=== PATIENT | female | born 1970 | race Caucasian/White ===

== ENCOUNTER → 2018-04-26 | Outpatient (CLI) | payer BC ==
--- NOTE | 2018-04-26 14:53 | RAD ---
DATE: 04/26/2018 EXAM: MAMMO LADI GAIL HARRIS, BREAST BILATERAL HISTORY: Right nipple discharge COMPARISON: 01/01/2015 This study was interpreted with the benefit of Computerized Aided Detection (CAD). Breast Density: SCATTERED The breast parenchyma shows scattered fibroglandular densities. Breast parenchyma level B. FINDINGS: 2-D imaging was performed in CC and MLO projections. 3-D tomosynthesis imaging was performed bilaterally in the CC projection. On the left there is a tiny smooth 4 mm left periareolar nodule at the 3:00 location. No new or enlarging right breast densities are seen. There are scattered microcalcifications in both breasts. The distribution suggests a benign etiology. Bilateral breast ultrasound, 04/26/2018: The right breast was carefully scanned with particular attention paid to the retroareolar region. A single small duct is seen. No mass or abnormal fluid collection is evident on the right. A targeted left breast ultrasound exam was then performed in the lateral retroareolar region where a small nodule was noted mammographically. At the 3:00 location approximately 1 cm from the nipple there is a 4 mm smooth rounded hypoechoic nodule. There are low level internal echoes. It lies along the anterior margin of a small duct. This probably represents a small complicated cyst or focus of ductal ectasia. IMPRESSION: 1. No mammographic or sonographic abnormality is identified on the right. If a suspicious right breast discharge persists, galactography may be considered for further evaluation. 2. Small probably benign left periareolar nodule. Sonographic follow-up in 6 months is suggested. BI-RADS CATEGORY: 3 PROBABLY BENIGN FINDING(S)-SHORT INTERVAL FOLLOW-UP SUGGESTED RECOMMENDED FOLLOW-UP: CLIN FOLLOW UP IMAGING CLINICALLY INDICATED PQRS compliance statement: Patient information was entered into a reminder system with a target due date for the next mammogram. Mammography is a sensitive method for finding small breast cancers, but it does not detect them all and is not a substitute for careful clinical examination. A negative mammogram does not negate a clinically suspicious finding and should not result in delay in biopsying a clinically suspicious abnormality. "Our facility is accredited by the [employer] Mammography Program."
== END | disposition home or self-care (01) ==
LOC: MAMMO 13:08
PROVIDERS: ATTEND Family Medicine
DX: R92.8 Other abnormal and inconclusive findings on diagnostic imaging of breast (principal)
CPT/HCPCS: 76641; 77066; G0279; 77062

== ENCOUNTER → 2019-01-02 | Outpatient (CLI) | payer BC ==
--- NOTE | 2019-01-02 10:49 | RAD ---
LEFT BREAST SONOGRAPHY Clinical indications: Follow-up of hypoechoic nodule at the 3 clock position of the left breast. No new palpable abnormality. COMPARISON: April 26, 2018. FINDINGS: High-resolution sonography of the 3:30 position of the left breast 1 cm from the nipple again demonstrates a small hypoechoic nodule measuring up to 4 mm in greatest dimension today. No internal color flow is seen. IMPRESSION: No significant change in size of hypoechoic nodule of the 3 clock position of the left breast. Recommend bilateral mammography in 6 months with left breast sonography for further evaluation and follow-up. BI-RADS Category 3 probable benign finding The patient information was entered into the data reminder system with a target due date for the next mammogram and left breast ultrasound of July 05, 2019.
== END | disposition home or self-care (01) ==
LOC: US 10:19
PROVIDERS: ATTEND Obstetrics & Gynecology
DX: N63.23 Unspecified lump in the left breast, lower outer quadrant (principal)
CPT/HCPCS: 76641

== ENCOUNTER → 2020-06-24 | Outpatient (CLI) | payer BC ==
--- NOTE | 2020-06-24 16:54 | RAD ---
Examination: Bilateral digital diagnostic mammogram. INDICATION: Patient is due for screening but presents for follow-up of probably benign findings on pr evious breast ultrasound, most recently on January 02, 2019. COMPARISON: Left breast ultrasound of 01/02/2019, an 04/26/2018, bilateral digital diagnostic mammogra m of 04/26/2018. TECHNIQUE: CC and MLO views of both breasts were obtained with 2-D and 3-D technique. Computer-aided detection was utilized. FINDINGS: The breast parenchyma is also entirely fatty replaced. The right mammogram is negative. The 3 mm circumscribed anechoic mass being followed in the subareolar left breast on ultrasound shows no mammographic correlate on this examination and most likely represents a tiny noncalcified oil cys t, which is mammographically benign. As there is no mammographic abnormality worth pursuing at this v isit and the patient is fatty replaced, additional imaging by targeted ultrasound is deferred in favo r of routine mammographic screening and clinical follow-up. IMPRESSION: Negative bilateral mammogram. No evidence of malignancy. BI-RADS Category 1 Negative Recommend patient return to routine screening next due in one year. Patient entered into a reminder system with targeted due date for next mammogram. Electronically signed by: Frederick Scanlon MD (06/24/2020 4:52 PM) [id number]
== END ==
LOC: MAMMO 11:03
PROVIDERS: ATTEND Obstetrics & Gynecology
DX: R92.8 Other abnormal and inconclusive findings on diagnostic imaging of breast (principal); N63.42 Unspecified lump in left breast, subareolar
CPT/HCPCS: 77066

== ENCOUNTER → 2021-09-24 | Outpatient (CLI) | payer BC ==
--- NOTE | 2021-09-24 16:49 | RAD ---
DATE: 09/24/2021 EXAM: MG DIGITAL BILAT DIAGNOSTIC MAMMO WITH LADI, US BREAST BILAT HISTORY: Diffuse bilateral breast pain. Clear right nipple discharge for 2 years, decreasing COMPARISON: Mammogram 06/24/2020, 04/26/2018, 01/01/2015. Left breast ultrasound 01/02/2019 This study was interpreted with the benefit of Computerized Aided Detection (CAD). Breast Density: FATTY The breast parenchyma is primarily fatty replaced. Breast parenchyma level dens ity A. FINDINGS: There are benign bilateral calcifications. There is a focal asymmetry in the left breast at 7:00 3 cm from the nipple. Additional small focal asymmetry in the left breast at 3:00 1 cm from the nipple. No architectural distortion in either breast. Ultrasound of the right breast was performed in the retroareolar region. There is a focally dilated d uct measuring 4 mm. No internal debris or mass. No blood flow. At 3:00 in the retroareolar region, th ere is a 4 x 3 x 3 mm ovoid hypoechoic mass with circumscribed margins, parallel in orientation. No v ascularity. This is likely a minimally complicated cyst. No right axillary lymphadenopathy. Ultrasound of the left breast was performed at 7:00 and 3:00. At 7:00, 3 cm from the nipple there is a ovoid hypoechoic mass measuring 5 x 4 x 2 mm. This has circumscribed margins and is parallel in flory entation. No internal vascularity. This may be a lymph node or a minimally complicated cyst. At 3:00 1 cm from the nipple, the previously seen minimally complicated cyst has decreased in size from 2019. No left axillary lymphadenopathy. IMPRESSION: 1. Probably benign ductal dilatation in the retroareolar right breast. 2. Probably benign hypoechoic mass in the right breast at 3:00 in the retroareolar region, likely a m inimally complicated cyst. 3. Probably benign hypoechoic mass in the left breast at 7:00 3 cm from the nipple, likely a lymph no de or minimally complicated cyst. 4. Recommend short interval bilateral breast ultrasound in 6 months to evaluate to ensure stability o f the lesions above. BI-RADS CATEGORY: 3 PROBABLY BENIGN FINDING(S)-SHORT INTERVAL FOLLOW-UP SUGGESTED RECOMMENDED FOLLOW-UP: 6M 6 MONTH FOLLOW-UP PQRS compliance statement: Patient information was entered into a reminder system with a target due d ate for the next mammogram. Mammography is a sensitive method for finding small breast cancers, but it does not detect them all a nd is not a substitute for careful clinical examination. A negative mammogram does not negate a clin ically suspicious finding and should not result in delay in biopsying a clinically suspicious abnorma lity. "Our facility is accredited by the [employer] Mammography [employer]." Electronically signed by: Romi Trejo MD (09/24/2021 4:47 PM) [id number]
== END ==
LOC: MAMMO 15:25
PROVIDERS: ATTEND Obstetrics & Gynecology
DX: N63.14 Unspecified lump in the right breast, lower inner quadrant (principal); N63.24 Unspecified lump in the left breast, lower inner quadrant; N60.02 Solitary cyst of left breast; N60.42 Mammary duct ectasia of left breast; N60.41 Mammary duct ectasia of right breast
CPT/HCPCS: 76641; 77066; G0279; 77062